=== PATIENT | male | born 1995 | race African-American/Black ===

== ENCOUNTER 2020-09-02 22:08 | Emergency (ER) | payer SELFPAY ==
--- NOTE | 2020-09-02 22:53 | ER Document Report ---
ED Medical Screen (RME) - General Chief Complaint: Breathing Difficulty Stated Complaint: SHORTNESS OF BREATH Time Seen by Provider: 09/02/20 22:46 Mode of Arrival: Ambulatory Information source: Patient - HPI Patient complains to provider of: Palpitations, chest pressure Notes: 09/02/20 22:52 Patient here with complaints of some mild chest pressure, generalized weakness feeling slightly short of breath. He also reports feeling his heart beating fast and irregular at times. He does have a history of asthma. He denies any significant cough. No known Covid exposure. No nausea, vomiting, diarrhea. No rash. Exam: No distress, nontoxic appearing. Lungs clear and equal throughout. Heart regular rate and rhythm with no murmur. An initial examination was made on the patient as part of the triage process, and it was determined a more comprehensive evaluation was necessary. Initial orders were placed and patient was transferred to another provider in the ED who assumed care and finished evaluation and plan. - Related Data Allergies/Adverse Reactions: No Known Allergies Allergy (Unverified 09/02/20 22:42) Past Medical History - Social History Chew tobacco use (# tins/day): No Frequency of alcohol use: Occasional Drug Abuse: None Physical Exam - Vital signs Vitals: Temp 98.2 F 09/02/20 22:10 Course - Vital Signs Vital signs: Temp Pulse Resp BP Pulse Ox 98.2 F 80 18 134/83 H 99 09/02/20 22:17 09/02/20 22:17 09/02/20 22:17 09/02/20 22:17 09/02/20 22:17
[2020-09-02 23:20] LABS: ABSOLUTE LYMPHOCYTES (AUTO) 1.6 10^3/uL (0.5-4.7); ABSOLUTE MONOCYTES (AUTO) 0.4 10^3/uL (0.1-1.4); ABSOLUTE NEUT (AUTO) 3.4 10^3/uL (1.7-8.2); BASOPHILS % (AUTO) 0.8 % (0-2); EOSINOPHILS % (AUTO) 0.4 % (0-6); HEMATOCRIT 40.9 % (37.9-51.0); HEMOGLOBIN 13.9 g/dL (13.5-17.0); LYMPHOCYTES % (AUTO) 29.4 % (13-45); MEAN CORPUSCULAR HEMOGLOBIN 28.4 pg (27.0-33.4); MEAN CORPUSCULAR VOLUME 84 fl (80-97); MONOCYTES % (AUTO) 8.1 % (3-13); PLATELET COUNT 296 10^3/uL (150-450); RED BLOOD COUNT 4.89 10^6/uL (4.35-5.55); RED CELL DISTRIBUTION WIDTH 12.9 % (11.5-14.0); SEGMENTED NEUTROPHILS % (AUTO) 61.3 % (42-78); TOTAL CELLS COUNTED % (AUTO) 100 %; WHITE BLOOD COUNT 5.5 10^3/uL (4.0-10.5)
--- NOTE | 2020-09-02 23:40 | RADIOLOGY REPORT (SQ) ---
EXAM DESCRIPTION: X-RAY CHEST- TWO VIEWS CLINICAL HISTORY: Palpitations, chest pressure COMPARISON: None available TECHNIQUE: 2 views of the chest FINDINGS: Hyperexpanded appearance is nonspecific and may be related to phase of respiration. There are no discrete air space infiltrates, pneumothoraces or pleural effusions. The pulmonary vascularity is normal. The cardiomediastinal silhouette is normal in size. The osseous structures appear grossly intact. IMPRESSION: There are no acute lung parenchymal findings.
[2020-09-02 23:44] LABS: ALBUMIN 3.6 g/dL (3.5-5.0); ALKALINE PHOSPHATASE 86 U/L (38-126); ASPARTATE AMINO TRANSFERASE 23 U/L (17-59); BILIRUBIN,DIRECT 0.2 mg/dL (0.0-0.4); BILIRUBIN,TOTAL 0.4 mg/dL (0.2-1.3); BLOOD UREA NITROGEN 11 mg/dL (7-20); CALCIUM 9.2 mg/dL (8.4-10.2); GLUCOSE 114 mg/dL (75-110); POTASSIUM 4.1 mmol/L (3.6-5.0); TOTAL PROTEIN 6.6 g/dL (6.3-8.2)
[2020-09-02 23:49] LABS: CARBON DIOXIDE 29 mmol/L (22-30); CHLORIDE 104 mmol/L (98-107)
[2020-09-03 00:06] LABS: ANION GAP 3 (5-19)
--- NOTE | 2020-09-03 03:12 | ER Document Report ---
ED General - General Chief Complaint: Breathing Difficulty Stated Complaint: SHORTNESS OF BREATH Time Seen by Provider: 09/02/20 22:46 Mode of Arrival: Ambulatory Notes: Patient is a 25-year-old male who comes emergency department for chief complaint of chest pain. He states for the past 2 days he has felt increased sensation of slight pressure and sometimes a sharp pain across his chest. He states occasionally feels slightly weak and a little bit short of breath as well. He states symptoms are worse lying down and sometimes it feels like heartburn. He denies current shortness of breath or sharp pain, states it intermittently just feels uncomfortable. He also states he feels like his heart is beating irreg ularly at times. He denies dizziness or passing out. He denies cough, fever, injury. He denies abdominal pain, nausea, vomiting. He has a history of asthma as a child, has had an inhaler intermittently but no interventions otherwise. He denies COVID-19 exposure. He denies any other sick symptoms. He denies any daily medications. He smokes cigarettes, denies alcohol or recreational drugs. - Related Data Allergies/Adverse Reactions: No Known Allergies Allergy (Unverified 09/02/20 22:42) Past Medical History - General Information source: Patient - Social History Smoking Status: Current Every Day Smoker Chew tobacco use (# tins/day): No Smoking Education Provided: Yes - <3 min Frequency of alcohol use: Occasional Drug Abuse: None Lives with: Family Family History: Reviewed & Not Pertinent Patient has homicidal ideation: No - Immunizations Immunizations up to date: Yes Hx Diphtheria, Pertussis, Tetanus Vaccination: Yes Review of Systems - Review of Systems Constitutional: No symptoms reported EENT: No symptoms reported Cardiovascular: See HPI Respiratory: See HPI Gastrointestinal: See HPI Genitourinary: No symptoms reported Male Genitourinary: No symptoms reported Musculoskeletal: No symptoms reported Skin: No symptoms reported Hematologic/Lymphatic: No symptoms reported Neurological/Psychological: No symptoms reported Physical Exam - Vital signs Vitals: Temp 98.2 F 09/02/20 22:10 - Notes Notes: GENERAL: Alert, interacts well. No acute distress. HEAD: Normocephalic, atraumatic. EYES: Pupils equal, round, and reactive to light. Extraocular movements intact. ENT: Oral mucosa moist, tongue midline. Oropharynx unremarkable. Airway patent. LUNGS: Clear to auscultation bilaterally, no wheezes, rales, or rhonchi. No respiratory distress. Non-tender chest wall. HEART: Regular rate and rhythm. No murmur ABDOMEN: Soft, non-tender. Non-distended. Bowel sounds present in all 4 quadrants. GENITOURINARY: Deferred EXTREMITIES: Moves all 4 extremities spontaneously. No edema, normal radial and dorsalis pedis pulses bilaterally. No cyanosis. BACK: no cervical, thoracic, lumbar midline tenderness. No saddle anesthesia, normal distal neurovascular exam. Moves all extremities in full range of motion. NEUROLOGICAL: Alert and oriented x3. Normal speech. Cranial nerves II through XII grossly intact. Strength 5/5 in all extremities. PSYCH: Normal affect, normal mood. SKIN: Warm, dry, normal turgor. No rashes or lesions noted. Course - Re-evaluation Re-evalutation: Patient is smiling and well-appearing, playing on her phone. No signs of distress. Unremarkable vital signs. Symptoms are worse lying down, intermittently feel like heartburn, intermittently more uncomfortable. Abdomen soft and benign. CBC, chemistry, troponin unremarkable. EKG shows questionable borderline ST elevations but I suspect this is because patient is very thin and tall. This does appear to be from body habitus. ESR was checked and it is only 1, troponin negative, low suspicion of pericarditis or acute intrathoracic etiology. No IV drug abuse or abnormal vital signs noted. I discussed with patient. I feel this is most likely gastrointestinal in nature. I discussed with Dr. Kincaid. Patient will be discharged with symptomatic treatment, discussed follow-up and return precautions in detail. Patient states understanding and agreement. Stable and well-appearing at time of discharge. - Vital Signs Vital signs: Temp Pulse Resp BP Pulse Ox 98.2 F 80 16 117/65 100 09/02/20 22:17 09/02/20 22:17 09/03/20 04:30 09/03/20 04:30 09/03/20 04:30 - Laboratory Results Result Diagrams: 09/02/20 23:02 09/02/20 23:02 Laboratory Results Interpreted: 09/02/20 23:02 Sodium 136.1 L Anion Gap 3 L Glucose 114 H Critical Laboratory Results Reviewed: No Critical Results - Radiology Results Critical Radiology Results Reviewed: No Critical Results - EKG Interpretation by Me Additional EKG results interpreted by me: EKG shows sinus rhythm at a rate of 68. Borderline ST elevation in inferior and anterior leads. No reciprocal changes. No T wave inversions. Left axis deviation by amplitude. QTc 405. Discharge - Discharge Clinical Impression: Chest pain of uncertain etiology Condition: Stable Disposition: HOME, SELF-CARE Additional Instructions: Your work-up does not show any concerning findings. Based on your symptoms I believe this is gastrointestinal. I recommend that you take the Carafate as prescribed to completion. Consider [id number] famotidine as well. For t he time being I recommend that you avoid spicy food, caffeine, NSAIDs. Also avoid smoking and alcohol. Follow-up with primary care for additional management. Return for worsening symptoms including severe worsening pain, vomiting, fever, difficulty breathing, passing out, or any other concerning symptoms. Prescriptions: Sucralfate [Carafate 1 gm Tablet] 1 gm PO QID #20 tablet
[2020-09-03 04:38] VITALS: BP 117/65
--- NOTE | 2020-09-03 20:38 | EKG REPORT ---
SEVERITY:- ABNORMAL ECG - WANDERING ATRIAL PACEMAKER ST ELEV, PROBABLE NORMAL EARLY REPOL PATTERN : Confirmed by: Noa Bruner MD 03-Sep-2020 20:37:37
== END 2020-09-03 04:49 | disposition home or self-care (01) ==
LOC: ER 22:08
DX: R07.9 Chest pain, unspecified (principal); R06.02 Shortness of breath; R53.1 Weakness; F17.200 Nicotine dependence, unspecified, uncomplicated
CPT/HCPCS: 36415; 71046; 80053; 83735; 84484; 85025; 85652; 93005; 93010; 99285